=== PATIENT | male | born 1950 | race Caucasian/White ===

== ENCOUNTER 2016-09-16 19:27 | Emergency (ER) | payer MEDICARE, BC ==
[2016-09-16 19:31] VITALS: TEMP 98.8
[2016-09-16] MEDS ORDERED: methylPREDNISolone SOD SUCCI 125 MG/2 ML VIAL IV STA (19:48)
[2016-09-16] MEDS ORDERED: AZITHROMYCIN 500 MG in SODIUM CHLORIDE 0.9% 250 ML IVPB STA (19:48)
[2016-09-16] MEDS ORDERED: ALBUTEROL NEBULIZED 2.5 MG/3 ML INHALATION STA (19:48)
[2016-09-16] MEDS ORDERED: IPRATROPIUM 0.5 MG/2.5 ML NEBU INHALATION STA (19:48)
[2016-09-16] MEDS ORDERED: SODIUM CHLORIDE 0.9% 1,000 ML IV STA ×2 (19:48)
--- NOTE | 2016-09-16 19:48 | ED ---
General Adult HPI - General Chief complaint: Shortness of Breath Stated complaint: SOB Time Seen by Provider: 09/16/16 19:47 Source: patient, RN notes reviewed, old records reviewed Mode of arrival: ambulatory Limitations: no limitations - History of Present Illness Initial comments: This is a 66-year-old male ER for evaluation. Patient is being evaluated for severe shortness of breath. Patient does have history of asthma, taking no medications with no improvement. Has increased cough and congestion denies fever. Patient does suffer from COPD asthma, has been doing without shortness of breath on and off for a couple days. He is doing his breathing treatments at home again with minimal help. Patient states he has follow-up with pulmonology this week. No chest pain, no fevers. Does have increased cough - Related Data Home Medications Medication Instructions Recorded Confirmed Fluticasone/Salmeterol [Advair 1 puff INHALATION RT-BID 08/16/14 09/16/16 500-50 Diskus] Folic Acid 1 mg PO DAILY 08/16/14 09/16/16 Spironolactone [Aldactone] 25 mg PO DAILY 08/16/14 09/16/16 Aspirin 325 mg PO DAILY 08/17/14 09/16/16 Metoprolol Tartrate 12.5 mg PO BID 08/17/14 09/16/16 Omeprazole [PriLOSEC] 20 mg PO AC-SUPPER 08/17/14 09/16/16 Albuterol Inhaler [Ventolin Hfa 1 - 2 puff INHALATION RT-Q6H PRN 09/16/16 Inhaler] Furosemide [Lasix] 10 mg PO BID 09/16/16 09/16/16 Previous Rx's Medication Instructions Recorded Albuterol Nebulized [Ventolin 2.5 mg INHALATION Q4H PRN #25 nebu 09/16/16 Nebulized] Albuterol Sulfate [Proair Hfa] 1 - 2 puff INHALATION Q4H PRN #1 09/16/16 inhaler Azithromycin [Zithromax Z-pack] 0 mg PO DIRECTED #1 pack 09/16/16 predniSONE 50 mg PO DAILY #5 tab 09/16/16 Allergies Allergy/AdvReac Type Severity Reaction Status Date / Time No Known Allergies Allergy Verified 09/16/16 20:14 Review of Systems ROS Statement: Those systems with pertinent positive or pertinent negative responses have been documented in the HPI. ROS Other: All systems not noted in ROS Statement are negative. Past Medical History Past Medical History: Asthma Additional Past Medical History / Comment(s): Valvular heart disease, with history of tricuspid regurgitation post infective endocarditis that occurred many years back. History of Any Multi-Drug Resistant Organisms: None Reported Additional Past Surgical History / Comment(s): tricuspid repair Aug Past Anesthesia/Blood Transfusion Reactions: No Reported Reaction Past Psychological History: No Psychological Hx Reported Smoking Status: Never smoker Past Alcohol Use History: None Reported Past Drug Use History: None Reported - Past Family History Father Family Medical History: No Reported History Mother Family Medical History: No Reported History General Exam Limitations: no limitations General appearance: alert, in no apparent distress, anxious Head exam: Present: atraumatic, normocephalic, normal inspection Eye exam: Present: normal appearance, PERRL, EOMI. Absent: scleral icterus, conjunctival injection, periorbital swelling ENT exam: Present: normal exam, mucous membranes moist Neck exam: Present: normal inspection. Absent: tenderness, meningismus, lymphadenopathy Respiratory exam: Present: normal lung sounds bilaterally, wheezes, accessory muscle use, decreased breath sounds, prolonged expiratory. Absent: respiratory distress, rales, rhonchi, stridor Cardiovascular Exam: Present: regular rate, normal rhythm, normal heart sounds. Absent: systolic murmur, diastolic murmur, rubs, gallop, clicks GI/Abdominal exam: Present: soft, normal bowel sounds. Absent: distended, tenderness, guarding, rebound, rigid Extremities exam: Present: normal inspection, full ROM, normal capillary refill. Absent: tenderness, pedal edema, joint swelling, calf tenderness Back exam: Present: normal inspection Neurological exam: Present: alert, oriented X3, CN II-XII intact Psychiatric exam: Present: normal affect, normal mood Skin exam: Present: warm, dry, intact, normal color. Absent: rash Course Vital Signs 09/16/16 09/16/16 09/16/16 19:30 20:14 20:22 Temperature 98.8 F Pulse Rate 87 78 72 Respiratory 20 Rate Blood Pressure 166/79 O2 Sat by Pulse 97 Oximetry 09/16/16 09/16/16 20:41 20:55 Temperature Pulse Rate 74 82 Respiratory Rate Blood Pressure O2 Sat by Pulse Oximetry - Reevaluation(s) Reevaluation #1: 09/16/16 20:47 Patient's symptoms are resolved after prolonged breathing treatment EKG Findings - EKG Comments: EKG Findings:: EKG shows normal sinus rhythm rate of 66, MI 196, QRS 148, QTC 450 Medical Decision Making - Medical Decision Making 6 emailed the ER for evaluation. This patient presented for evaluation of shortness of breath cough and congestion. Patient states asthma, COPD exacerbation. Patient states he is feeling significantly improved of long breathing treatment, IV fluid. Patient did to like to be discharged home. - Lab Data Result diagrams: 09/16/16 20:10 09/16/16 20:10 Lab Results 09/16/16 09/16/16 09/16/16 Range/Units 20:10 20:10 20:10 WBC 9.6 (3.8-10.6) k/uL RBC 5.00 (4.30-5.90) m/uL Hgb 14.8 (13.0-17.5) gm/dL Hct 44.5 (39.0-53.0) % MCV 89.0 (80.0-100.0) fL MCH 29.5 (25.0-35.0) pg MCHC 33.2 (31.0-37.0) g/dL RDW 14.2 (11.5-15.5) % Plt Count 177 (150-450) k/uL Neutrophils % 67 % Lymphocytes % 23 % Monocytes % 6 % Eosinophils % 2 % Basophils % 1 % Neutrophils # 6.5 (1.3-7.7) k/uL Lymphocytes # 2.2 (1.0-4.8) k/uL Monocytes # 0.5 (0-1.0) k/uL Eosinophils # 0.2 (0-0.7) k/uL Basophils # 0.1 (0-0.2) k/uL PT (9.0-12.0) sec INR (<1.1) APTT (22.0-30.0) sec Sodium 141 (137-145) mmol/L Potassium 4.2 (3.5-5.1) mmol/L Chloride 105 (98-107) mmol/L Carbon Dioxide 21 L (22-30) mmol/L Anion Gap 15 mmol/L BUN 17 (9-20) mg/dL Creatinine 1.04 (0.66-1.25) mg/dL Est GFR (MDRD) Af Amer >60 (>60 ml/min/1.73 sqM) Est GFR (MDRD) Non-Af >60 (>60 ml/min/1.73 sqM) Glucose 124 H (74-99) mg/dL Calcium 9.4 (8.4-10.2) mg/dL Magnesium 2.0 (1.6-2.3) mg/dL Total Bilirubin 0.9 (0.2-1.3) mg/dL AST 25 (17-59) U/L ALT 23 (21-72) U/L Alkaline Phosphatase 78 (38-126) U/L Total Creatine Kinase 43 L (55-170) U/L CK-MB (CK-2) 1.4 (0.0-2.4) ng/mL CK-MB (CK-2) Rel Index 3.3 Troponin I <0.012 (0.000-0.034) ng/mL NT-Pro-B Natriuret Pep pg/mL Total Protein 7.5 (6.3-8.2) g/dL Albumin 4.1 (3.5-5.0) g/dL 09/16/16 09/16/16 Range/Units 20:10 20:10 WBC (3.8-10.6) k/uL RBC (4.30-5.90) m/uL Hgb (13.0-17.5) gm/dL Hct (39.0-53.0) % MCV (80.0-100.0) fL MCH (25.0-35.0) pg MCHC (31.0-37.0) g/dL RDW (11.5-15.5) % Plt Count (150-450) k/uL Neutrophils % % Lymphocytes % % Monocytes % % Eosinophils % % Basophils % % Neutrophils # (1.3-7.7) k/uL Lymphocytes # (1.0-4.8) k/uL Monocytes # (0-1.0) k/uL Eosinophils # (0-0.7) k/uL Basophils # (0-0.2) k/uL PT 10.0 (9.0-12.0) sec INR 1.0 (<1.1) APTT 21.8 L (22.0-30.0) sec Sodium (137-145) mmol/L Potassium (3.5-5.1) mmol/L Chloride (98-107) mmol/L Carbon Dioxide (22-30) mmol/L Anion Gap mmol/L BUN (9-20) mg/dL Creatinine (0.66-1.25) mg/dL Est GFR (MDRD) Af Amer (>60 ml/min/1.73 sqM) Est GFR (MDRD) Non-Af (>60 ml/min/1.73 sqM) Glucose (74-99) mg/dL Calcium (8.4-10.2) mg/dL Magnesium (1.6-2.3) mg/dL Total Bilirubin (0.2-1.3) mg/dL AST (17-59) U/L ALT (21-72) U/L Alkaline Phosphatase (38-126) U/L Total Creatine Kinase (55-170) U/L CK-MB (CK-2) (0.0-2.4) ng/mL CK-MB (CK-2) Rel Index Troponin I (0.000-0.034) ng/mL NT-Pro-B Natriuret Pep 192 pg/mL Total Protein (6.3-8.2) g/dL Albumin (3.5-5.0) g/dL - Radiology Data Radiology results: report reviewed (Chest x-ray is negative for acute disease), image reviewed Disposition Clinical Impression: Acute exacerbation of chronic obstructive airways disease Disposition: HOME SELF-CARE Condition: Good Instructions: Asthma (ED), Acute Bronchitis (ED), Chronic Bronchitis (ED), Bronchospasm (ED) Prescriptions: Albuterol Nebulized [Ventolin Nebulized] 2.5 mg INHALATION Q4H PRN #25 nebu PRN Reason: Shortness Of Breath Albuterol Sulfate [Proair Hfa] 1 - 2 puff INHALATION Q4H PRN #1 inhaler PRN Reason: Shortness Of Breath Azithromycin [Zithromax Z-pack] 0 mg PO DIRECTED #1 pack predniSONE 50 mg PO DAILY #5 tab Referrals: Nonstaff,Physician [Primary Care Provider] - 1-2 days
[2016-09-16] MEDS ORDERED: IPRATROPIUM-ALBUTEROL 3 ML NEB INHALATION SCH (20:00)
[2016-09-16] MEDS ORDERED: SODIUM CHLORIDE 0.9% 1,000 ML IV SCH (20:00)
--- NOTE | 2016-09-16 20:04 | XR ---
EXAMINATION TYPE: XR chest 2V DATE OF EXAM: 09/16/2016 7:58 PM COMPARISON: Prior chest x-ray July HISTORY: Cough and shortness of breath TECHNIQUE: Frontal and lateral views of the chest are obtained. FINDINGS: There are overlying cardiac leads. Cardiomediastinal silhouette, pulmonary vascularity and juan are stable.. Patient is status post cardiac valve replacement likely tricuspid. Prominent lung volumes suggest underlying COPD. IMPRESSION: No acute cardiopulmonary process.
[2016-09-16 20:22] LABS: Basophils # (A) 0.1 k/uL (0-0.2); Basophils % (A) 1 %; CH 29.9; CHCM 33.8; Eosinophils # (A) 0.2 k/uL (0-0.7); Eosinophils % (A) 2 %; HCT 44.5 % (39.0-53.0); HDW 2.74; HGB 14.8 gm/dL (13.0-17.5); Luc # (Auto) 0.18; Luc % (Auto) 2; Lymphocytes # (A) 2.2 k/uL (1.0-4.8); Lymphocytes % (A) 23 %; MCH 29.5 pg (25.0-35.0); MCHC 33.2 g/dL (31.0-37.0); Mean Platelet Volume 7.6; Monocytes # (A) 0.5 k/uL (0-1.0); Monocytes % (A) 6 %; Neutrophils # (A) 6.5 k/uL (1.3-7.7); Neutrophils % (A) 67 %; RDW 14.2 % (11.5-15.5); WBC 9.6 k/uL (3.8-10.6); WBC (Perox) 9.82
[2016-09-16 20:35] LABS: ALT 23 U/L (21-72); AST 25 U/L (17-59); Alkaline Phosphatase 78 U/L (38-126); Anion Gap 15 mmol/L; Blood Urea Nitrogen 17 mg/dL (9-20); Calcium 9.4 mg/dL (8.4-10.2); Carbon Dioxide 21 mmol/L (22-30); Chloride 105 mmol/L (98-107); Glucose 124 mg/dL (74-99); Non-African American GFR(MDRD) >60 (>60 ml/min/1.73 sqM); Potassium 4.2 mmol/L (3.5-5.1); Sodium 141 mmol/L (137-145); Total Bilirubin 0.9 mg/dL (0.2-1.3); Total Protein 7.5 g/dL (6.3-8.2)
[2016-09-16 20:37] LABS: Creatine Kinase 43 U/L (55-170)
[2016-09-16 20:40] LABS: Partial Thromboplastin Time 21.8 sec (22.0-30.0)
[2016-09-16 20:50] LABS: Creatine Kinase MB 1.4 ng/mL (0.0-2.4); Troponin I <0.012 ng/mL (0.000-0.034)
[2016-09-16 21:26] VITALS: BP 149/75; PULSE 76; RESP 18
[2016-09-17] MEDS ORDERED: methylPREDNISolone SOD SUCCI 125 MG/2 ML VIAL IV SCH
[2016-09-17] MEDS ORDERED: ENOXAPARIN 40 MG/0.4 ML SYRINGE SQ SCH (09:00)
[2016-09-17] MEDS ORDERED: AZITHROMYCIN 500 MG TAB PO SCH (20:00)
== END 2016-09-16 21:24 | disposition home or self-care (01) ==
LOC: EC 19:27
DX: J44.1 Chronic obstructive pulmonary disease with (acute) exacerbation (principal); Z79.51 Long term (current) use of inhaled steroids; Z79.82 Long term (current) use of aspirin; Z79.899 Other long term (current) drug therapy
CPT/HCPCS: 36415; 94644; 93005; 83880; 80053; 82550; 82553; 83735; 84484; 85025; 85610; 85730; 71020; 99285; 96365; 96375; J2930; J0456

== ENCOUNTER → 2024-07-22 | Outpatient (CLI) | payer MEDICARE ==
[2024-07-22 18:22] LABS: HCT 37.9 % (39.6-50.0); HGB 11.9 g/dL (13.0-17.0); MCH 27.5 pg (27.0-32.0); MCHC 31.4 g/dL (32.0-37.0); MCV 87.7 FL (80.0-97.0); Mean Platelet Volume 9.6 FL (9.5-12.2); NRBC Per 100 WBC 0 X 10*3/uL (0.00-0.01); Platelet Count 258 X 10*3/uL (140-440); RBC 4.32 X 10*6/uL (4.40-5.60); RDW 16.2 % (11.5-14.5); WBC 9.45 X 10*3/uL (4.50-10.00)
[2024-07-22 19:13] LABS: Blood Urea Nitrogen 15.2 mg/dL (9.0-27.0); Carbon Dioxide 24.2 mmol/L (21.6-31.8); Chloride 105 mmol/L (96-109); Potassium 3.9 mmol/L (3.5-5.5); Sodium 140 mmol/L (135-145)
== END | disposition home or self-care (01) ==
LOC: LABPAT 08:44
PROVIDERS: ATTEND Internal Medicine Clinical Cardiac Electrophysiology
DX: Z01.812 Encounter for preprocedural laboratory examination (principal); I42.0 Dilated cardiomyopathy; I45.9 Conduction disorder, unspecified; Z95.0 Presence of cardiac pacemaker
CPT/HCPCS: 80051; 82565; 84520; 85027

== ENCOUNTER → 2024-07-24 | Day surgery (SDC) | payer MEDICARE ==
[2024-07-24] MEDS: SODIUM CHLORIDE 0.9% 1,000 ML IV SCH (13:35)
[2024-07-24] MEDS: SODIUM CHLORIDE 0.9% 500 ML 500 ML IV ONE (16:19)
[2024-07-24] MEDS: IOPAMIDOL-370 100ML BTL IVP ONE (16:19)
--- NOTE | 2024-07-24 16:34 | P.EPPROC ---
- EP Procedure Note Electrophysiology Procedure Note: Diagnosis Progressive cardiomyopathy over the last 12 to 18 months following dual-chamber pacemaker implantation for intermittent complete heart block RV pacing between 70 to 100% Last year left ventricular ejection fraction at implant in [place] was 60-65% Now his left ventricular ejection fraction is around 35% likely related to pacemaker mediated cardiomyopathy EF procedure Procedure 1 Cinefluoroscopy of the leads shows right atrial screw-in lead and an RV lead Both in stable position with no fractures or breaks Procedure 2 Left upper extremity venogram performed 10 cc IV dye injected. Patent left subclavian vein Plan Upgrade to a biventricular pacemaker next week Will attempt extraction of the RV lead if possible
[2024-07-24 17:15] VITALS: BP 132/62; PULSE 65; RESP 16; TEMP 97.2
== END ==
LOC: CATHEP 12:53
PROVIDERS: ATTEND Internal Medicine Clinical Cardiac Electrophysiology
DX: I44.2 Atrioventricular block, complete (principal); I42.0 Dilated cardiomyopathy; I10 Essential (primary) hypertension; E78.5 Hyperlipidemia, unspecified; R00.1 Bradycardia, unspecified; J45.909 Unspecified asthma, uncomplicated; Z79.51 Long term (current) use of inhaled steroids; Z79.899 Other long term (current) drug therapy; Z95.0 Presence of cardiac pacemaker
CPT/HCPCS: 36005; 75820; Q9967

== ENCOUNTER 2024-07-29 12:08 | Day surgery (SDC) | payer MEDICARE, OTHER ==
[2024-07-29] MEDS: SODIUM CHLORIDE 0.9% 1,000 ML IV ONE (13:31)
[2024-07-29] MEDS ORDERED: FUROSEMIDE 10 MG/ML 2 ML VIAL ONE (14:43)
[2024-07-29] MEDS ORDERED: MIDAZOLAM 2 MG/2 ML VIAL ONE (14:43)
[2024-07-29] MEDS ORDERED: fentaNYL (PF) 50 MCG/ML 2 ML AMP ONE (14:43)
[2024-07-29] MEDS ORDERED: HYDROmorphone (PF) 1 MG/ML ONE (14:43)
[2024-07-29] MEDS ORDERED: PROPOFOL 10 MG/ML 20 ML VIAL IV ONE (14:43)
[2024-07-29] MEDS ORDERED: VANCOMYCIN IV PER PHARMACY 1 EACH MISC MISCELLANE PRN (15:28)
[2024-07-29] MEDS: LIDOCAINE 1% INJ 10MG/ML (20 ML MDV) SQ ONE (15:35)
[2024-07-29] MEDS: ROPIVACAINE 5 MG/ML 30 ML VIAL MISCELLANE ONE (15:35)
[2024-07-29] MEDS: ceFAZolin 1 GM in SODIUM CHLORIDE 0.9% IRRIG BTL 250 ML IRRIGATION PRN (15:39)
[2024-07-29] MEDS: HEPARIN SODIUM,PORCINE (1 ML) 2,500 UNIT in SODIUM CHLORIDE 0.9% 250 ML IRRIGATION ONE (15:39)
[2024-07-29] MEDS: VANCOMYCIN 1,250 MG in SODIUM CHLORIDE 0.9% 250 ML IVPB PRN (15:43)
[2024-07-29] MEDS: IOPAMIDOL-370 100ML BTL IVP ONE (17:12)
[2024-07-29] MEDS ORDERED: ACETAMINOPHEN TAB 325 MG TAB PO PRN (18:21)
--- NOTE | 2024-07-29 19:07 | P.EPPROC ---
- EP Procedure Note Electrophysiology Procedure Note: Diagnosis Complete heart block, dual-chamber pacemaker with RV lead in the RV septum 1 year back at an outside institution. Left ventricular ejection fraction at that time was about 60-65% Within 1 year there was a significant reduction in his left ventricular ejection fraction to 35-40% with development of congestive heart failure class II-III, on guideline directed medical treatment In view of the development of new onset cardiomyopathy with near 100% RV pacing, patient was brought in for upgrade to a biventricular pacemaker bradycardia, Procedure LV/ biventricular pacemaker upgrade Attempt at left bundle pacing but evidence of septal scar and therefore left bundle pacing was abandoned LV lead placement in the mid anterior vein. Very tortuous lateral vein especially close to the coronary sinus body Long duration procedure on account of multiple attempts at left bundle pacing at different sites with 2 different sheaths. The deflectable left bundle sheath provided excellent anatomic position, very stable but pacing revealed evidence of electrical scar Details Patient was brought to the EP lab in a fasting state. Written informed consent was obtained prior to the procedure. Conscious sedation provided by anesthesia team IV antibiotics administered including IV vancomycin. Local anesthesia administered. A 4 cm incision made in the pectoral area. Subfascial pocket and enlarged cephalad. Venous access obtained and a guidewire placed in the right heart Venous sheaths placed. First left bundle pacing was attempted with a standard fixed curve His bundle sheath. Multiple positions were attempted just above the chronic RV septal lead. However suboptimal paced morphology obtained. Sheath and lead were relatively unstable. Therefore the deflectable sheath was then introduced and with this very stable mid septal position just above the chronic RV lead was obtained. Good initial paced beats were noted with a typical W pattern However despite screwing the lead deep into the septum the impedance is did not change at all. The impedance remained constant at 550 ohms At high output pacing there was intermittent capture of the left bundle, alternating with wide septal paced beats The downstroke of the paced QRS of the narrow and wide beats was identical, with multiple notches consistent with scar This was consistent with septal scar Therefore LV lead pacing was successfully attempted. The coronary sinus was accessed coronary sinus venogram was performed. Diminutive coronary veins were noted. While the patient did have a lateral vein this was very tortuous especially close to the coronary sinus body and with a subselective catheter access the ostium of this vein but the guidewire would not going into the desirable branch/tributary. Therefore the anterior vein was selected. Initially the screw-in Medtronic lead quadripolar was used but the tip of this lead would not pass into the anterior vein. Therefore this was switched out for a model #4298-lead which was successfully placed in this vein. Excellent thresholds without any diaphragmatic stimulation were obtained when pacing LV 1- 2. Rest of the poles had high output capture only Chronic atrial lead position the right atrial appendage. Model #7841 [employer], 52 cm in length P waves 1.3 mV pacing impedance 456 ohms and pacing threshold 0.8 V at 0.4 ms RV lead position in the RV septum. Pacing impedance 570 ohms, no underlying R waves, pacing threshold 1.25 V at 0.4 ms LV lead positioned in the LV vein. LV 1-2 electrode pacing impedance 931 ohms. Pacing threshold 1 V at 0.4 ms with no diaphragmatic stimulation After the biventricular pacemaker Medtronic generator was connected, simultaneous pacing showed a QRS width of 155 ms but a very short stimulus to peak and V6 of 66 ms. Lead I showed a negative QRS Therefore because of rapid initial conduction, simultaneous pacing was chosen over higher LV offset values which had longer stimulus-V6 peak times Dual-chamber pacemaker generator, Revel Body explanted Medtronic biventricular pacemaker device connected to the leads and placed in the subfascial pocket VICE PRESIDENT OF ADVERTISING-P W4 TR 01 Percepta Quad VICE PRESIDENT OF ADVERTISING-P MRI Parameters DDDR 60-130 with a paced AV delay of 130 ms Patient tolerated the procedure well without acute complications
--- NOTE | 2024-07-29 19:22 | XR ---
EXAMINATION TYPE: XR chest 1V portable DATE OF EXAM: 07/29/2024 7:15 PM COMPARISON: 06/04/2017 CLINICAL INDICATION: Male, 74 years old with history of Lead placement check, TECHNIQUE: XR chest 1V portable view(s) obtained. FINDINGS: The heart size is normal. Pacemaker is in place on the left. 3 leads are present with typical orient ation. No pneumothorax is evident. The pulmonary vasculature is normal. The lungs are clear. IMPRESSION: 1. No acute pulmonary process. 2. No pneumothorax post pacemaker placement [facility], Workstation: [facility], 07/29/2024 7:20 PM
[2024-07-29] MEDS: SODIUM CHLORIDE 0.9% 1,000 ML IV SCH ×2 (19:33→19:34)
[2024-07-29] MEDS: ALBUTEROL NEBULIZED 2.5 MG/3 ML INHALATION SCH (19:55)
[2024-07-29] MEDS: ATORVASTATIN 40 MG TAB PO SCH (20:00)
[2024-07-29] MEDS: carvediloL 6.25 MG TAB PO SCH (20:00)
[2024-07-29 20:56] LABS: INR 1.1 (<1.2)
[2024-07-29 21:12] LABS: African American GFR (CKD) >90 (>60 ml/min/1.73 sqM); Anion Gap 11 mmol/L; Blood Urea Nitrogen 16 mg/dL (9-20); Calcium 8.5 mg/dL (8.4-10.2); Carbon Dioxide 24 mmol/L (22-30); Chloride 103 mmol/L (98-107); Glucose 115 mg/dL (74-99); Non-African American GFR(CKD) 85 (>60 ml/min/1.73 sqM); Potassium 3.2 mmol/L (3.5-5.1); Sodium 138 mmol/L (137-145)
[2024-07-30 07:26] VITALS: BP 121/69; PULSE 75; RESP 16; TEMP 98.4
[2024-07-30] MEDS: lisinopriL 5 MG TAB PO SCH (08:38)
--- NOTE | 2024-07-30 09:25 | P.DS ---
Providers Attending physician: Yo Telles Primary care physician: [facility] Course: The patient is a 74-year-old male with past medical history of bradycardia with prior pacemaker placement in [place]. Patient developed cardiomyopathy and therefore underwent biventricular device upgrade yesterday with Dr. Telles. Unfortunately there was difficulty placing left bundle lead, due to electrical scarring. Successful biventricular upgrade. Patient interviewed and examined resting comfortably in bed. No difficulty breathing overnight. No significant pain at device site. GENERAL: Well-appearing, well-nourished and in no acute distress. NECK: Supple without JVD or thyromegaly. LUNGS: Breath sounds clear to auscultation bilaterally. Respiration equal and unlabored. No wheezes, rales or rhonchi. HEART: Regular rate and rhythm without murmurs, rubs or gallops. S1 and S2 heard. Small amount of shadowing on dressing. EXTREMITIES: Normal range of motion, no edema. No clubbing or cyanosis. Peripheral pulses intact and strong. IMPRESSION: Bradycardia History of pacemaker implantation Dilated cardiomyopathy Class III congestive heart failure Upgrade to biventricular pacemaker PLAN: Start carvedilol 6.25 mg twice daily Device clinic follow-up in 1 week I am dictating on behalf of Dr Yo Telles's history/physical and assessment/plan. Plan - Discharge Summary Discharge Rx Participant: No New Discharge Prescriptions: New carvediloL [Coreg] 6.25 mg PO BID #180 tablet Discontinued Metoprolol Tartrate 25 mg PO HS No Action Spironolactone [Aldactone] 25 mg PO DAILY Folic Acid 1 mg PO HS Fluticasone Propion/Salmeterol [Advair 500-50 Diskus] 1 puff INHALATION RT- BID Omeprazole [PriLOSEC] 20 mg PO HS Furosemide [Lasix] 20 mg PO DAILY lisinopriL [Zestril] 5 mg PO DAILY Atorvastatin [Lipitor] 40 mg PO HS Unk Vitamin B12 1 tab PO DAILY Discharge Medication List Fluticasone Propion/Salmeterol [Advair 500-50 Diskus] 1 puff INHALATION RT-BID 08/16/14 [History] Folic Acid 1 mg PO HS 08/16/14 [History] Spironolactone [Aldactone] 25 mg PO DAILY 08/16/14 [History] Omeprazole [PriLOSEC] 20 mg PO HS 08/17/14 [History] Furosemide [Lasix] 20 mg PO DAILY 09/16/16 [History] Atorvastatin [Lipitor] 40 mg PO HS 07/23/24 [History] Unk Vitamin B12 1 tab PO DAILY 07/23/24 [History] lisinopriL [Zestril] 5 mg PO DAILY 07/23/24 [History] carvediloL [Coreg] 6.25 mg PO BID #180 tablet 07/29/24 [Rx] Follow up Appointment(s)/Referral(s): Yo Telles MD [STAFF PHYSICIAN] - 08/05/24 9:00 am (FOLLOW UP APPOINTMENT MADE WITH DEVICE CLINIC. ) Activity/Diet/Wound Care/Special Instructions: PATIENT EDUCATION MATERIAL Instructions following a heart rhythm device implant. 1. Keep dressing DRY for 5 DAYS. You may cover the area with Saran or Cling Wrap, prior to a shower. 2. The dressing will be removed in the Device Clinic at [facility]. Absorbable sutures were used to close the wound. 3. Avoid raising the left arm above the shoulder level. 4 week restriction 4. Avoid arm movements, like backscratching, rubbing the head, or pulling on a cord. 4 weeks restriction 5. Gentle range of motion movements of the shoulder, closest to the incision should be performed to avoid a frozen shoulder. (Pendulum exercises of the shoulder) 6. The opposite arm may be used freely. 7. Avoid driving for 7 days. 8. Avoid activities such as golfing, swimming, weed whacking, lifting more than 10 pounds weight, bowling, gymnastics and weight training/lifting. (6 weeks restriction) 9. Activities such as wood chopping with an axe, pull-ups in the gymnasium, power lifting, arc-welding, being close to home induction cooktops will always be a problem. 10. Arm sling is only a reminder not to raise the arm above the head. You do not need to keep the arm completely immobilized. Your free to move the arm and use it and for normal activities. In case of any problems, please call [facility], @ [phone], Attention: Device Clinic Device clinic follow-up in 5 days Follow-up with primary reporting process consultant in 2-3 months Stop metoprolol Start carvedilol 6.25 mg twice daily Discharge Disposition: HOME SELF-CARE
[2024-07-30] MEDS: SPIRONOLACTONE 25 MG TAB PO SCH (11:11)
[2024-07-30] MEDS: FUROSEMIDE 20 MG TAB PO SCH (11:12)
== END 2024-07-30 13:14 | disposition home or self-care (01) ==
LOC: CATHEP 12:08 → 6NMEDSUR 18:05 → CATHEP 07-30 13:14
PROVIDERS: ATTEND Internal Medicine Clinical Cardiac Electrophysiology
DX: I42.0 Dilated cardiomyopathy (principal); I44.2 Atrioventricular block, complete; I08.9 Rheumatic multiple valve disease, unspecified; I50.9 Heart failure, unspecified; J45.909 Unspecified asthma, uncomplicated; I11.0 Hypertensive heart disease with heart failure; E78.5 Hyperlipidemia, unspecified; Z90.49 Acquired absence of other specified parts of digestive tract; Z95.0 Presence of cardiac pacemaker; Z79.01 Long term (current) use of anticoagulants; Z79.899 Other long term (current) drug therapy
CPT/HCPCS: 33225; 33229; 80048; 85610; 71045; C1769 ×3; C2621; C1892 ×2; C1730; C1887 ×2; C1898 ×2; C1900; J2250; J3370; J1644; J1940; J0690 ×2; J2003; J3010; J1171; J2795; J2704; Q9967